=== PATIENT | female | born 1955 | race Caucasian/White ===

== ENCOUNTER → 2017-04-05 | Outpatient (CLI) | payer BC | LOC: MC.RAD 13:20 | DX: Z12.31 Encounter for screening mammogram for malignant neoplasm of breast (principal) ==

== ENCOUNTER → 2018-06-30 | Outpatient (CLI) | payer BC | LOC: MC.RAD 14:24 | DX: Z12.31 Encounter for screening mammogram for malignant neoplasm of breast (principal) ==

== ENCOUNTER → 2019-07-04 | Outpatient (CLI) | payer BC | LOC: MC.RAD 11:30 | DX: Z12.31 Encounter for screening mammogram for malignant neoplasm of breast (principal) ==

== ENCOUNTER → 2020-07-09 | Outpatient (CLI) | payer BC | LOC: MC.RAD 13:19 | DX: Z12.31 Encounter for screening mammogram for malignant neoplasm of breast (principal) ==

== ENCOUNTER → 2021-08-11 | Outpatient (CLI) | payer BC | LOC: MC.RAD 14:13 | DX: Z12.31 Encounter for screening mammogram for malignant neoplasm of breast (principal) ==

== ENCOUNTER 2021-12-12 08:06 | Day surgery (SDC) | payer BC ==
[2006-04-26 12:31] VITALS: BP 144/85
[~2021-12-12] VITALS: Ht 165.1 cm; Wt 64.5 kg
[2021-12-12 08:50] VITALS: BP 183/109; PULSE 100; TEMP 99.1
[2021-12-12 09:45] VITALS: BP 142/92; PULSE 79
[2021-12-12 10:00] VITALS: BP 148/87; PULSE 79
--- NOTE | 2021-12-12 10:07 | NUR ---
8185 - PT arrived and was settled by Erika CLARKE. Written report obtained. PT provided with a hot toast with butter and jam, with water per request. PT oriented to room and call stewart, within reach. VSS. 1000 - PT is eating her toast and continues to drink water. PT denies nausea. No vomiting. VSS. Daughter was contacted per PT request.
[2021-12-12 10:15] VITALS: BP 158/86; PULSE 75
--- NOTE | 2021-12-12 10:27 | NUR ---
1015 - VSS. [place] instructions and educational material reviewed with the PT who verbalized understanding and signed the related paperwork. Questions answered to PT satisfaction. IV discontinued. Catheter tip intact. Pressure bandage applied; no redness or swelling noted. Call bel remains within reach; PT denied needing assistance changing.
--- NOTE | 2021-12-12 10:31 | NUR ---
PT dismissed from endo via wheelchair by Perfecto CLARKE. PT has DC packet and personal belongings in hand and was tranferred into the care of her daughter Magi who is present to drive private car.
== END 2021-12-12 10:31 | disposition home or self-care (01) ==
LOC: SDCO 08:06
DX: Z12.11 Encounter for screening for malignant neoplasm of colon (principal); D12.2 Benign neoplasm of ascending colon; K57.30 Diverticulosis of large intestine without perforation or abscess without bleeding; Z80.0 Family history of malignant neoplasm of digestive organs
CPT/HCPCS: J2704; J7120

== ENCOUNTER → 2022-01-08 | Outpatient (CLI) | payer BC | LOC: COL.RAD 10:02 | DX: R10.11 Right upper quadrant pain (principal) ==

== ENCOUNTER → 2024-02-07 | Outpatient (CLI) | payer BC | LOC: MC.RAD 13:48 | DX: Z12.31 Encounter for screening mammogram for malignant neoplasm of breast (principal) ==